=== PATIENT | female | born 1960 | race African-American/Black ===

== ENCOUNTER 2017-12-13 08:31 | Outpatient (CLI) | payer BC ==
--- NOTE | 2017-12-13 09:38 | MMO ---
BILATERAL MAMMOGRAMS: DATE: 12/13/17 HISTORY: Screening mammography. COMPARISON: 10/19/14. FINDINGS: Extremely dense fibroglandular tissue decreases sensitivity of exam. No dominant mass or suspicious c alcifications. The study was evaluated with the assistance of computer-aided detection. IMPRESSION: BIRADS 1: Negative Suggest routine follow-up. POS: RUTH
== END 2017-12-13 08:32 | disposition home or self-care (01) ==
LOC: SCSMAMMO 08:31
DX: Z12.31 Encounter for screening mammogram for malignant neoplasm of breast (principal); Z78.0 Asymptomatic menopausal state
CPT/HCPCS: 77067

== ENCOUNTER 2018-12-18 08:03 | Outpatient (CLI) | payer BC ==
--- NOTE | 2018-12-18 11:21 | MMO ---
Bilateral MAMMO Bilat Screen [facility]. CLINICAL HISTORY: Patient is 58 years old and is seen for screening. The patient has the following family history of breast cancer: half sister, at age 40, malignant (generic). The patient has no personal history of cancer. VIEWS: The views performed were: bilateral craniocaudal and bilateral mediolateral oblique. FILMS COMPARED: The present examination has been compared to prior imaging studies performed at [facility] on 10/19/2014 and 12/13/2018, and at [facility] on 03/20/2011 and 03/04/2013. This study has been interpreted with the assistance of computer-aided detection. MAMMOGRAM FINDINGS: The breasts are heterogeneously dense, which could obscure a lesion on mammography. There are benign appearing calcifications seen in both breasts. There are no suspicious masses, suspicious calcifications, or new areas of architectural distortion. IMPRESSION: THERE IS NO MAMMOGRAPHIC EVIDENCE OF MALIGNANCY. A ROUTINE FOLLOW-UP MAMMOGRAM IN 1 YEAR IS RECOMMENDED. ACR BI-RADS Category 2 - Benign finding MAMMOGRAPHY NOTE: 1. A negative mammogram report should not delay a biopsy if a dominant of clinically suspicious mass is present. 2. Approximately 10% to 15% of breast cancers are not detected by mammography. 3. Adenosis and dense breasts may obscure an underlying neoplasm. Reported by: LUIZ SHIN MD Electonically Signed: [id number]
== END 2018-12-18 08:04 | disposition home or self-care (01) ==
LOC: SCSMAMMO 08:03
PROVIDERS: ATTEND Physician Assistant
DX: Z12.31 Encounter for screening mammogram for malignant neoplasm of breast (principal); Z80.3 Family history of malignant neoplasm of breast
CPT/HCPCS: 77067